=== PATIENT | female | born 1975 | race Hispanic/Latino ===

== ENCOUNTER 2018-11-22 04:30 | Emergency (ER) | payer MEDICARE ==
[2018-11-22] MEDS ORDERED: TETANUS/DIPHTHERIA TOXOID [ADULT] 0.5 ML VIAL IM ONE (05:32)
== END 2018-11-22 06:36 | disposition home or self-care (01) ==
LOC: EDH 04:30
DX: S62.366A Nondisplaced fracture of neck of fifth metacarpal bone, right hand, initial encounter for closed fracture (principal); S80.212A Abrasion, left knee, initial encounter; S80.211A Abrasion, right knee, initial encounter; Z72.0 Tobacco use; Z98.890 Other specified postprocedural states; Y04.8XXA Assault by other bodily force, initial encounter; Y93.89 Activity, other specified; Y92.009 Unspecified place in unspecified non-institutional (private) residence as the place of occurrence of the external cause; Y99.8 Other external cause status
CPT/HCPCS: 29125; 73130; 90471; 90714; 99291

== ENCOUNTER 2021-09-16 05:30 | Observation (INO) | payer MEDICARE ==
[2021-09-15 15:53] VITALS: BP 134/72
[2021-09-15 15:58] LABS: BASOPHILS % (AUTO) 1.2 % (0.0-5.0); EOSINOPHILS % (AUTO) 5.1 % (0.0-8.0); HEMATOCRIT 36.6 % (36-48); LYMPHOCYTES % (AUTO) 32.6 % (21.0-51.0); MEAN CORPUSCULAR HEMOGLOBIN 28.9 pg (27.0-33.0); MEAN CORPUSCULAR VOLUME 90.4 fL (79-99); MONOCYTES % (AUTO) 4.6 % (3.0-13.0); NEUTROPHILS % (AUTO) 56.3 % (40.0-77.0); PLATELET COUNT (AUTO) 222 K/uL (130-400); RED BLOOD CELL COUNT(AUTO) 4.05 MIL/uL (4.00-5.50); RED CELL DISTRIBUTION WIDTH 16.6 % (11.0-15.5); WHITE BLOOD COUNT (AUTO) 8.2 K/uL (4.8-10.8)
[2021-09-16] VITALS (20 sets, daily range): BP systolic 125–174; BP diastolic 68–94
[~2021-09-16] VITALS: Ht 162.6 cm; Wt 89.9 kg
[~2021-09-16 05:30] MED LIST: BIOTIN PO; FERROUS SULFATE PO; HYDR-4060 PO; MULT-660 PO; MV-M1TAB57 PO; TIZA4CAP8 PO
[2021-09-16] MEDS: CEFAZOLIN SODIUM 1 GM VIAL IVP SCH ×3 (06:00→10:00)
[2021-09-16] MEDS: LACTATED RINGERS 1000ML 1,000 ML IV SCH ×5 (07:00→12:14)
[2021-09-16] MEDS ORDERED: DEXAMETHASONE SOD PHOSPHATE 10MG/ML 1ML VIAL ONE (07:21)
[2021-09-16] MEDS ORDERED: LIDOCAINE PF 100MG/5ML (2%) SYRINGE 5ML ONE (07:21)
[2021-09-16] MEDS ORDERED: SUCCINYLCHOLINE 200MG/10ML SYR ONE (07:21)
[2021-09-16] MEDS ORDERED: ONDANSETRON 4MG INJ ONE ×2 (07:22→12:26)
[2021-09-16] MEDS ORDERED: NEOSTIGMINE 5MG/5ML SYR IV ONE (07:22)
[2021-09-16] MEDS ORDERED: PROPOFOL 10 MG/ML 20ML VIAL IV ONE ×2 (07:22→11:33)
[2021-09-16] MEDS ORDERED: GLYCOPYRROLATE 1 MG/5 ML SYRINGE ONE (07:22)
[2021-09-16] MEDS ORDERED: MIDAZOLAM HCL 1 MG/ML 2ML VIAL ONE ×2 (07:22→12:49)
[2021-09-16] MEDS ORDERED: ROCURONIUM 10MG/1ML SYR 10 MG/ML ML ONE ×2 (07:23→10:08)
[2021-09-16] MEDS ORDERED: FENTANYL CITRATE PF 50 MCG/1 ML 2ML VIAL ONE ×4 (07:24→10:09)
[2021-09-16] MEDS ORDERED: BACITRACIN 28.4 GM OINT TP ONE (11:18)
[2021-09-16] MEDS ORDERED: MEPERIDINE-PF 25 MG/ML SYG ONE (11:49)
[2021-09-16] MEDS ORDERED: HYDRALAZINE 20MG/ML VIAL ONE (12:17)
[2021-09-16] MEDS ORDERED: MORPHINE 2 MG SYG ONE (12:20)
[2021-09-16] MEDS ORDERED: HYDROMORPHONE 1 MG INJ ONE (12:31)
[2021-09-16] MEDS ORDERED: MEPERIDINE-PF 75 MG/ML SYG ONE (13:39)
[2021-09-16] MEDS ORDERED: PROMETHAZINE HCL 25 MG/ML 1ML AMPULE IM PRN (14:00)
[2021-09-16] MEDS ORDERED: IBUPROFEN 600 MG TABLET PO PRN (14:00)
[2021-09-16] MEDS ORDERED: BISACODYL 10 MG SUPP.RECT RC PRN (14:00)
[2021-09-16] MEDS ORDERED: ACETAMINOPHEN WITH CODEINE 1 TAB TAB PO PRN (14:00)
[2021-09-16] MEDS ORDERED: ONDANSETRON 4MG INJ IVP PRN (14:00)
[2021-09-16] MEDS: PROMETHAZINE HCL 25 MG/ML 1ML AMPULE IM PRN ×3 (14:13→19:32)
[2021-09-16] MEDS: DEXTROSE 5 %-0.45 % NACL 1,000 ML IV PRN (16:33)
[2021-09-16] MEDS: MEPERIDINE-PF 75 MG/ML SYG IM PRN ×2 (16:33→19:32)
[2021-09-16] MEDS: DOCUSATE SODIUM 100 MG CAP PO PRN (20:32)
[2021-09-16] MEDS: SIMETHICONE 80 MG TAB.CHEW PO PRN (20:32)
[2021-09-16] MEDS ORDERED: KETOROLAC 60 MG VIAL (30MG/ML) IM PRN (21:30)
[2021-09-16] MEDS ORDERED: HYDROMORPHONE 0.5 MG SYG (0.5MG/0.5ML) IVP PRN (21:30)
[2021-09-16] MEDS ORDERED: KETOROLAC 30MG VIAL (30MG/ML) ONE (21:37)
[2021-09-17] MEDS: DEXTROSE 5 %-0.45 % NACL 1,000 ML IV PRN (01:19)
[2021-09-17 04:23] VITALS: BP 133/66
[2021-09-17 05:12] LABS: HEMATOCRIT 28.3 % (36-48); MEAN CORPUSCULAR HEMOGLOBIN 29.2 pg (27.0-33.0); MEAN CORPUSCULAR HGB CONC 32.5 g/dL (32.0-36.0); MEAN CORPUSCULAR VOLUME 89.8 fL (79-99); RED BLOOD CELL COUNT(AUTO) 3.15 MIL/uL (4.00-5.50); RED CELL DISTRIBUTION WIDTH 16.2 % (11.0-15.5); WHITE BLOOD COUNT (AUTO) 12.7 K/uL (4.8-10.8)
[2021-09-17 07:22] VITALS: BP 130/83
[2021-09-17] MEDS: SIMETHICONE 80 MG TAB.CHEW PO PRN (08:42)
[2021-09-17] MEDS: DOCUSATE SODIUM 100 MG CAP PO PRN (08:42)
[2021-09-17 11:32] VITALS: BP 132/81
[2021-09-17] MEDS ORDERED: ACET1TAB25 PO (12:18)
[2021-09-17] MEDS ORDERED: FERR325T22 PO (12:19)
== END 2021-09-17 13:50 | disposition home or self-care (01) ==
LOC: DAH 05:30 → DAHIP 05:31 → DAH 05:31 → WSH 13:10 → UNDODISOB 09-17 13:50
PROVIDERS: ADMIT Obstetrics & Gynecology; ATTEND Obstetrics & Gynecology
DX: N92.1 Excessive and frequent menstruation with irregular cycle (principal); Z20.822 Contact with and (suspected) exposure to COVID-19; N90.7 Vulvar cyst; L72.8 Other follicular cysts of the skin and subcutaneous tissue; D50.9 Iron deficiency anemia, unspecified; N83.209 Unspecified ovarian cyst, unspecified side; N73.6 Female pelvic peritoneal adhesions (postinfective); R68.89 Other general symptoms and signs; Z98.891 History of uterine scar from previous surgery; Z79.899 Other long term (current) drug therapy
CPT/HCPCS: 11400; 36415 ×2; 57135; 58552; 84703; 85025; 85027; 86850; 86900; 86901; 87635; 96360; 96361 ×2; 96372 ×2; A4215 ×2; A4221; A4222; A4223; A4344; A4510; A4600; A4649 ×3; A4663; A6260; C1769 ×2; C9803; G0378 ×24; J0330; J0360; J0690; J1100; J1170; J1885; J2001; J2175 ×4; J2250 ×2; J2405 ×2; J2550 ×2; J2704 ×2; J2710; J3010 ×4; J3490; J7030; J7120 ×2

== ENCOUNTER 2022-09-03 18:04 | Emergency (ER) | payer MEDICARE ==
[~2022-09-03] VITALS: Ht 162.6 cm; Wt 88.5 kg
[~2022-09-03 18:04] MED LIST changes: +ACET-2079 PO; +FERR325T22 PO; -MV-M1TAB57 PO
[2022-09-03 18:10] VITALS: BP 137/74
== END 2022-09-03 18:34 | disposition home or self-care (01) ==
LOC: EDH 18:04
DX: G89.29 Other chronic pain (principal); M54.50 Low back pain, unspecified; F41.9 Anxiety disorder, unspecified; Z79.899 Other long term (current) drug therapy; W01.0XXA Fall on same level from slipping, tripping and stumbling without subsequent striking against object, initial encounter; Y93.89 Activity, other specified; Y92.89 Other specified places as the place of occurrence of the external cause; Y99.8 Other external cause status
CPT/HCPCS: 99281

== ENCOUNTER 2023-12-23 09:06 | Emergency (ER) | payer MEDICARE ==
[~2023-12-23] VITALS: Ht 162.6 cm; Wt 90.7 kg
[2023-12-23 09:33] LABS: EOSINOPHILS # (AUTO) 0.33 K/uL (0.00-0.70); EOSINOPHILS % (AUTO) 3.4 % (0.0-8.0); HEMATOCRIT 42.6 % (36-48); IMMATURE GRANULOCYTE ABSOLUTE 0.04 K/uL (0-1); LYMPHOCYTES # (AUTO) 3.7 K/uL (1.0-4.8); LYMPHOCYTES % (AUTO) 38.3 % (21.0-51.0); MEAN CORPUSCULAR HEMOGLOBIN 29.5 pg (27.0-33.0); MEAN CORPUSCULAR HGB CONC 33.6 g/dL (32.0-36.0); MONOCYTES # (AUTO) 0.4 K/uL (0.1-1.0); MONOCYTES % (AUTO) 4.4 % (3.0-13.0); NEUTROPHILS # (AUTO) 5.1 K/uL (1.8-7.7); NEUTROPHILS % (AUTO) 52.5 % (40.0-77.0); PLATELET COUNT (AUTO) 222 K/uL (130-400); RED BLOOD CELL COUNT(AUTO) 4.84 MIL/uL (4.00-5.50); RED CELL DISTRIBUTION WIDTH 14.2 % (11.0-15.5); WHITE BLOOD COUNT (AUTO) 9.6 K/uL (4.8-10.8)
[2023-12-23 09:42] LABS: CREATININE 0.8 mg/dL (0.5-1.5); POTASSIUM 3.7 mmol/L (3.5-5.1)
[2023-12-23 09:46] LABS: ALBUMIN 3.9 g/dL (3.5-5.0); BILIRUBIN,TOTAL 0.4 mg/dL (0.2-1.0); TOTAL PROTEIN, SERUM 7.5 g/dL (6.0-8.3)
[2023-12-23] MEDS ORDERED: 0.9%NACL 1000ML 1,000 ML IV STA (13:02)
[2023-12-23] MEDS ORDERED: MECLIZINE HCL 25 MG TABLET PO ONE (13:30)
[2023-12-23 14:53] VITALS: BP 154/72; PULSE 51; RESP 16; O2SAT 98
[2023-12-23] MEDS ORDERED: MECL-302 PO (15:47)
== END 2023-12-23 16:12 | disposition home or self-care (01) ==
LOC: EDH 09:06
DX: R42 Dizziness and giddiness (principal); I10 Essential (primary) hypertension; I25.2 Old myocardial infarction; F41.9 Anxiety disorder, unspecified; M19.90 Unspecified osteoarthritis, unspecified site; Z90.49 Acquired absence of other specified parts of digestive tract; Z90.710 Acquired absence of both cervix and uterus
CPT/HCPCS: 99285; 70551; 70450; 71045; 84484 ×2; 80053; 85025; 36415; 93005; J7030